=== PATIENT | female | born 1975 | race Caucasian/White ===

== ENCOUNTER → 2022-03-11 | Outpatient (CLI) | payer OTHER | LOC: CARD 14:00 | PROVIDERS: ATTEND Nurse Practitioner Family | DX: R53.83 Other fatigue (principal) | CPT/HCPCS: 93306 ==

== ENCOUNTER → 2022-03-20 | Outpatient (CLI) | payer OTHER ==
[~2022-03-20] VITALS: Ht 157 cm; Wt 70.0 kg
[~2022-03-20] MED LIST: CATHETER FLUSH 10 ML SYR IVP PRN
[2022-03-20 09:32] VITALS: BP 119/93
--- NOTE | 2022-03-20 15:04 | Cardiology Stress Test Report ---
Stress Test Report Date of Procedure/Referring: Date of Procedure: Mar 20, 2022 PCP No,Local Physician Admitting Physician Admitting Physician: Attending Physician: Pia Olmos Aprn Indications: CP Baseline Heart Rate: 83 Baseline Blood Pressure: Blood Pressure Systolic: 119 Blood Pressure Diastolic: 93 Vital Signs Date Time Temp Pulse Resp B/P (MAP) Pulse Ox O2 Delivery O2 Flow Rate FiO2 03/20/22 09:32 95 16 119/93 (102) 98 Room Air Baseline Vital Signs Vital Signs Date Time Temp Pulse Resp B/P (MAP) Pulse Ox O2 Delivery O2 Flow Rate FiO2 03/20/22 09:32 95 16 119/93 (102) 98 Room Air Baseline EKG: Baseline EKG: NSR Summary: After explaining the procedure and details to the patient, she signed the consent and was brought to the stress nuclear laboratory. Patient exercised on standard Jose protocol, EKG, heart rate and blood pressure were monitored continuously, resting and stress doses of radio tracer were injected, imaging was acquired and reviewed in the short axis, horizontal long axis and vertical long axis views Patient was able to exercise for a total of 6.30 minutes on Jose protocol, METs 7.1 Maximum heart rate 152 Maximum blood pressure 162/81 Stress EKG, Minimal nondiagnostic changes Recovery EKG, Return to baseline TID: 0.92 SSS: 6 SDS: 4 EF: 74 Conclusion: 1. Fair exercise tolerance for a total of 6 minutes and 30 seconds on standard Jose protocol, 7.1 METS achieving 86% of maximum expected heart rate 2. Appropriate heart rate and blood pressure response to exercise return to baseline during recovery 3. Nondiagnostic EKG changes with exercise return to baseline during recovery 4. No significant ischemia or infarction noted on SPECT images 5. Normal left ventricular size, ejection fraction 74% Copy Copies To 1: [facility]/DANIELLE GUADARRAMA MD Mar 20, 2022 15:04
== END ==
LOC: CARD 07:57
PROVIDERS: ATTEND Nurse Practitioner Family
DX: R53.83 Other fatigue (principal); R07.9 Chest pain, unspecified
CPT/HCPCS: 78452; 93017; A9502